=== PATIENT | male | born 1990 | race Caucasian/White ===

== ENCOUNTER 2017-03-30 13:22 | Emergency (ER) | payer MEDICAID, OTHER ==
[2017-03-30 13:34] VITALS: BP 123/67; PULSE 74; RESP 18; TEMP 98.7; O2SAT 99
[2017-03-30] MEDS ORDERED: Albuterol-Ipratrop 3 mg / 0.5 (3 ml) UD INH STA (13:54)
[2017-03-30] MEDS ORDERED: Albuterol-Ipratrop 3 mg / 0.5 (3 ml) UD ONE (13:54)
--- NOTE | 2017-03-30 14:00 | ED PDOC ---
HPI: CCC, URI, Sore Throat Time Seen by Provider: 03/30/17 13:39 Chief Complaint (Nursing): Cough, Cold, Congestion Chief Complaint (Provider): Chest and nasal congestion History Per: Patient History/Exam Limitations: no limitations Have you had recent travel within the past 21 days to any of the following countries: [place], [place], [place] or [place]?: No Onset/Duration Of Symptoms: Days Current Symptoms Are (Timing): Still Present Location Of Pain: None Sick Contacts (Context): None Associated Symptoms: Nasal Congestion Severity: Moderate Additional History Per: Patient Additional Complaint(s): The pt is a 26yo male, presents to the ED for evaluation of nasal and chest congestion present for the past 5 days. pt reports he has been taking OTC cough medication with no relief. States he saw some blood tinged sputum today while coughing, prompting his visit to the ED today. Pt denies any fever or chills. He offers no additional medical complaints. Past Medical History Reviewed: Historical Data, Nursing Documentation, Vital Signs Vital Signs: Last Vital Signs Temp 98.7 F 03/30/17 13:32 Pulse 74 03/30/17 13:32 Resp 18 03/30/17 13:32 BP 123/67 03/30/17 13:32 Pulse Ox 99 03/30/17 14:03 - Medical History PMH: No Chronic Diseases - Surgical History Surgical History: Appendectomy - Family History Family History: States: Unknown Family Hx - Living Arrangements Living Arrangements: With Family - Social History Current smoker - smoking cessation education provided: Yes (advised to stop smoking) Alcohol: None Drugs: Denies - Home Medications Home Medications: Ambulatory Orders Medication Instructions Recorded Albuterol HFA [Ventolin HFA 90 2 puff IH Q4H #1 puff 02/14/16 mcg/actuation (8 g)] Azithromycin [Zithromax] 250 mg PO DAILY #6 tablet 02/14/16 Albuterol HFA [Ventolin HFA 90 1 puff IH BID PRN #1 unit 03/30/17 mcg/actuation (8 g)] Guaifen/Phenyleph/Acetaminophn 1 tab PO BID #14 tab 03/30/17 [Mucinex Fast-Max Cold & Sinus 325 mg-200 mg-5] - Allergies Allergies/Adverse Reactions: Allergies Allergy/AdvReac Type Severity Reaction Status Date / Time No Known Allergies Allergy Verified 02/14/16 07:43 Review of Systems ROS Statement: Except As Marked, All Systems Reviewed And Found Negative Constitutional: Negative for: Fever, Chills ENT: Positive for: Nose Congestion Cardiovascular: Positive for: Other (chest congestion) Physical Exam - Reviewed Nursing Documentation Reviewed: Yes Vital Signs Reviewed: Yes - Physical Exam Appears: Positive for: Well, Non-toxic, No Acute Distress Head Exam: Positive for: ATRAUMATIC, NORMAL INSPECTION, NORMOCEPHALIC Skin: Positive for: Normal Color Neck: Positive for: Normal Cardiovascular/Chest: Positive for: Regular Rate, Rhythm Respiratory: Positive for: Normal Breath Sounds. Negative for: Respiratory Distress Neurologic/Psych: Positive for: Alert, Oriented - ECG O2 Sat by Pulse Oximetry: 99 (RA) Pulse Ox Interpretation: Normal Medical Decision Making Medical Decision Making: Time: 1350 Impression: Nasal and chest congestion Plan: -- Duoneb 3 ml INH Scribe Attestation: Documented by Esther Sinha, acting as a scribe for NORA Amos Provider Attestation: All medical record entries made by the Scribe were at my direction and personally dictated by me. I have reviewed the chart and agree that the record accurately reflects my personal performance of the history, physical exam, medical decision making, and the department course for this patient. I have also personally directed, reviewed, and agree with the discharge instructions and disposition. Disposition - Clinical Impression Clinical Impression: Bronchitis - Patient ED Disposition Is Patient to be Admitted: No Counseled Patient/Family Regarding: Diagnosis, Need For Followup, Rx Given - Disposition Disposition: Routine/Home Disposition Time: 14:37 Condition: GOOD Prescriptions: Albuterol HFA [Ventolin HFA 90 mcg/actuation (8 g)] 1 puff IH BID PRN #1 unit PRN Reason: Wheezing Guaifen/Phenyleph/Acetaminophn [Mucinex Fast-Max Cold & Sinus 325 mg-200 mg-5] 1 tab PO BID #14 tab Instructions: Acute Bronchitis (ED), How to Stop Smoking (ED)
== END 2017-03-30 14:58 | disposition home or self-care (01) ==
LOC: H.ER 13:22
DX: J40 Bronchitis, not specified as acute or chronic (principal); Z71.6 Tobacco abuse counseling; R09.89 Other specified symptoms and signs involving the circulatory and respiratory systems

== ENCOUNTER 2017-07-10 08:45 | Emergency (ER) | payer BC, OTHER ==
[2017-07-10 08:52] VITALS: BMI 22.1
--- NOTE | 2017-07-10 10:04 | ED PDOC ---
HPI: Male Pain Time Seen by Provider: 07/10/17 09:11 Chief Complaint (Nursing): Abdominal Pain History Per: Patient History/Exam Limitations: no limitations Onset/Duration Of Symptoms: Gradual Current Symptoms Are (Timing): Still Present Severity: Mild Quality Of Discomfort: Sharp Associated Symptoms: denies: Fever, Chills, Nausea, Vomiting, Diarrhea, Loss Of Appetite, Back Pain, Chest Pain, Constipation, Urinary Symptoms Alleviating Factors: None Additional History Per: Patient Additional Complaint(s): Pt c/o vomiting and right abdominal pain radiating to right flank and right groin since this AM. Denies injury Past Medical History Reviewed: Historical Data, Nursing Documentation, Vital Signs Vital Signs: Last Vital Signs Temp 98.0 F 07/10/17 08:53 Pulse 62 07/10/17 08:53 Resp 16 07/10/17 08:53 BP 111/73 07/10/17 08:53 Pulse Ox 100 07/10/17 08:53 - Medical History PMH: No Chronic Diseases - Surgical History Surgical History: Appendectomy - Family History Family History: States: Other Other Family History: h/o of renal stones - Living Arrangements Living Arrangements: With Family - Social History Current smoker - smoking cessation education provided: No - Home Medications Home Medications: Ambulatory Orders Medication Instructions Recorded Albuterol HFA [Ventolin HFA 90 2 puff IH Q4H #1 puff 02/14/16 mcg/actuation (8 g)] Azithromycin [Zithromax] 250 mg PO DAILY #6 tablet 02/14/16 Albuterol HFA [Ventolin HFA 90 1 puff IH BID PRN #1 unit 03/30/17 mcg/actuation (8 g)] Guaifen/Phenyleph/Acetaminophn 1 tab PO BID #14 tab 03/30/17 [Mucinex Fast-Max Cold & Sinus 325 mg-200 mg-5] Naproxen 500 mg PO BID #30 ect 07/10/17 - Allergies Allergies/Adverse Reactions: Allergies Allergy/AdvReac Type Severity Reaction Status Date / Time No Known Allergies Allergy Verified 02/14/16 07:43 Review of Systems ROS Statement: Except As Marked, All Systems Reviewed And Found Negative Constitutional: Negative for: Fever, Chills Cardiovascular: Negative for: Chest Pain, Palpitations Respiratory: Negative for: Cough, Shortness of Breath Gastrointestinal: Positive for: Abdominal Pain. Negative for: Nausea, Vomiting Genitourinary Male: Negative for: Dysuria, Frequency, Hematuria, Penile Discharge, Scrotal Pain, Rash, Penile Pain Musculoskeletal: Negative for: Neck Pain Neurological: Negative for: Weakness, Numbness Physical Exam - Reviewed Nursing Documentation Reviewed: Yes Vital Signs Reviewed: Yes - Physical Exam Appears: Positive for: Uncomfortable Head Exam: Positive for: ATRAUMATIC, NORMAL INSPECTION, NORMOCEPHALIC Eye Exam: Positive for: Normal appearance, EOMI, PERRL Neck: Positive for: Normal, Painless ROM, Supple Cardiovascular/Chest: Positive for: Regular Rate, Rhythm, Chest Non Tender. Negative for: Edema, Gallop, Bradycardia, Tachycardia Respiratory: Positive for: Normal Breath Sounds. Negative for: Decreased Breath Sounds, Accessory Muscle Use, Crackles, Rales, Rhonchi, Stridor, Wheezing , Respiratory Distress Pulses-Radial (L): 2+ Pulses-Radial (R): 2+ Gastrointestinal/Abdominal: Positive for: Normal Exam, Bowel Sounds, Soft. Negative for: Tenderness Male Genital Exam: Positive for: normal genitalia, other (chaperoned with nurse shirley nml cremaster reflex). Negative for: scrotum tenderness (R), scrotum tenderness (L), testicular tenderness (R), testicular tenderness (L), urethral discharge Back: Positive for: Normal Inspection. Negative for: L CVA Tenderness, R CVA Tenderness Extremity: Positive for: Normal ROM. Negative for: Tenderness, Pedal Edema Neurologic/Psych: Positive for: Alert, chief engineer production II-XII, Oriented, Mood/Affect (calm) . Negative for: Motor/Sensory Deficits - Laboratory Results Result Diagrams: 07/10/17 09:50 07/10/17 09:50 - ECG O2 Sat by Pulse Oximetry: 100 Pulse Ox Interpretation: Normal - Progress ED Course And Treament: IMPRESSION: Slightly enlarged right kidney demonstrates mild diffuse low-attenuation. No evidence of obstructing stone in the right kidney. The possibility of infectious process in the right kidney should be excluded. Mildly dilated right kidney collecting system without definite evidence of obstructing stone. Linear shaped multiple calcifications seen at the right aspect of the pelvis at the wall or adjacent to the right ureter of uncertain etiology and the differential consideration includes calcified lymph nodes, vascular calcification or calcified wall of the distal right ureter. 2 centimeters slightly low-attenuation mass like lesion at the inferior aspect of the right liver lobe image 33 series 2 of uncertain etiology. Both benign and malignant liver lesion can share the same appearance in this noncontrast study. Otherwise grossly unremarkable. advise close f/u with pmd. Re-evaluation Time: 11:06 Condition: Improved Disposition - Clinical Impression Clinical Impression: Renal colic on right side - Patient ED Disposition Is Patient to be Admitted: No Counseled Patient/Family Regarding: Studies Performed, Diagnosis, Need For Followup, Rx Given - Disposition Referrals: [facility] [Outside] (2 to 3 days) [facility] [Outside] Disposition: Routine/Home Disposition Time: 11:08 Condition: GOOD Prescriptions: Naproxen 500 mg PO BID #30 ect Instructions: Renal Colic (ED) Forms: [facility] (Czech)
[2017-07-10 10:07] LABS: BASO % 0.6 % (0.0-2.0); EOS # 0.1 K/uL (0.0-0.7); EOS % 1.1 % (0.0-4.0); HEMATOCRIT 48.1 % (35.0-51.0); LYMPH # 2.2 K/uL (1.0-4.3); MEAN CELL VOLUME 87.5 fl (80.0-94.0); MEAN CORPUSCULAR HEMOGLOBIN 29.8 pg (27.0-31.0); MEAN PLATELET VOLUME 9.7 fl (7.2-11.7); MONO # 0.6 K/uL (0.0-0.8); MONO % 8.9 % (0.0-10.0); NEUT # 4.1 K/uL (1.8-7.0); NEUT % 58.4 % (50.0-75.0); NRBC % 0.2 % (0.0-0.0); RED CELL DISTRIBUTION WIDTH 13.2 % (11.5-14.5); WHITE BLOOD COUNT 7.1 K/uL (4.8-10.8)
[2017-07-10 10:09] LABS: RBC URINE 7 /hpf (0-3); URINE BACTERIA RARE (<OCC); URINE BILIRUBIN NEGATIVE (NEGATIVE); URINE BLOOD SMALL (NEGATIVE); URINE COLOR YELLOW (YELLOW); URINE GLUCOSE (UA) NEG (Normal); URINE KETONE NEGATIVE (NEGATIVE); URINE LEUKOCYTE ESTERASE NEG Leu/uL (Negative); URINE PROTEIN 30 mg/dL (NEGATIVE); URINE UROBILINOGEN 0.2-1.0 mg/dL (0.2-1.0); WBC URINE 7 /hpf (0-5)
[2017-07-10 10:10] LABS: ALB/GLOB RATIO 1.4 (1.0-2.1); ALKALINE PHOSPHATASE 62 U/L (38-126); ALT/SGPT 30 U/L (21-72); AMYLASE 83 U/L (30-110); AST/SGOT 36 U/L (17-59); BILIRUBIN,TOTAL 1.1 mg/dl (0.2-1.3); BLOOD UREA NITROGEN 15 mg/dl (9-20); CALCIUM 9.7 mg/dL (8.4-10.2); CARBON DIOXIDE 21 mmol/L (22-30); CHLORIDE 108 mmol/L (98-107); GFR AFRICAN-AMERICAN > 60; GLUCOSE,RANDOM 97 mg/dL (75-110); LIPASE 59 U/L (23-300); POTASSIUM 4.9 MMOL/L (3.6-5.0); SODIUM 140 mmol/l (132-148); TOTAL PROTEIN 8.3 G/DL (6.3-8.2)
--- NOTE | 2017-07-10 10:44 | CT ---
PROCEDURE: CT Abdomen and Pelvis without intravenous contrast HISTORY: right flank pain COMPARISON: None. TECHNIQUE: Axial and reformatted coronal and sagittal CT images of the abdomen and pelvis were obtained without IV or oral contrast administration.. Contrast Dose: 0 Radiation dose: Total exam DLP = 460.97 mGy-cm. This CT exam was performed using one or more of the following dose reduction techniques: Automated exposure control, adjustment of the mA and/or kV according to patient size, and/or use of iterative reconstruction technique. FINDINGS: LOWER THORAX: Unremarkable. LIVER: There is a slightly low-attenuation 2 centimeter lesion at the inferior aspect of the right liver lobe image 33 series 2 of uncertain etiology GALLBLADDER AND BILE DUCTS: Unremarkable. PANCREAS: Unremarkable. No gross lesion or ductal dilatation. SPLEEN: Unremarkable. ADRENALS: Unremarkable. No mass. KIDNEYS AND URETERS: The right kidney appears slightly larger than the left demonstrates mild diffuse low attenuation. There is mild dietitian of the right kidney collecting system without definite evidence of obstructing stone. There are linear shaped calcification at the wall or adjacent to the mid to distal right ureter. The left kidney is grossly unremarkable. VASCULATURE: Unremarkable. No aortic aneurysm. BOWEL: Unremarkable. No obstruction. No gross mural thickening. APPENDIX: No evidence of appendicitis in this noncontrast study. PERITONEUM: Unremarkable. No free fluid. No free air. LYMPH NODES: Unremarkable. No enlarged lymph nodes. BLADDER: Unremarkable. REPRODUCTIVE: Unremarkable. BONES: No acute fracture. OTHER FINDINGS: None. IMPRESSION: Slightly enlarged right kidney demonstrates mild diffuse low-attenuation. No evidence of obstructing stone in the right kidney. The possibility of infectious process in the right kidney should be excluded. Mildly dilated right kidney collecting system without definite evidence of obstructing stone. Linear shaped multiple calcifications seen at the right aspect of the pelvis at the wall or adjacent to the right ureter of uncertain etiology and the differential consideration includes calcified lymph nodes, vascular calcification or calcified wall of the distal right ureter. 2 centimeters slightly low-attenuation mass like lesion at the inferior aspect of the right liver lobe image 33 series 2 of uncertain etiology. Both benign and malignant liver lesion can share the same appearance in this noncontrast study. Otherwise grossly unremarkable.
[2017-07-10 11:36] VITALS: BP 128/76; PULSE 78; RESP 19; TEMP 97.6; O2SAT 98
== END 2017-07-10 11:36 | disposition home or self-care (01) ==
LOC: H.ER 08:45
DX: N23 Unspecified renal colic (principal)
CPT/HCPCS: 74176; 80053; 81003; 82150; 83690; 85025; 96374; 99282; J1885

== ENCOUNTER 2017-11-19 18:28 | Emergency (ER) | payer SELFPAY ==
[2017-11-19 18:28] VITALS: BMI 22.1
[2017-11-19 18:39] VITALS: BP 121/63; PULSE 93; RESP 16; TEMP 100.1; O2SAT 100
--- NOTE | 2017-11-19 19:23 | ED PDOC ---
HPI: General Adult Time Seen by Provider: 11/19/17 18:42 Chief Complaint (Nursing): Flu-like Symptoms Chief Complaint (Provider): Flu Like Symptoms History Per: Patient History/Exam Limitations: no limitations Onset/Duration Of Symptoms: Days (x3) Current Symptoms Are (Timing): Still Present Additional Complaint(s): 26 year old male presents to the ED complaining of body aches, chills and cough x3 days. The patient states that he has been taking over the counter medications which have offered some relief of his symptoms. Patient also reports that his daughter is flu (+). PMD:FAMILY PROVIDER,NO Past Medical History Reviewed: Historical Data, Nursing Documentation, Vital Signs Vital Signs: Last Vital Signs Temp 100.1 F H 11/19/17 18:35 Pulse 93 H 11/19/17 18:35 Resp 16 11/19/17 18:35 BP 121/63 11/19/17 18:35 Pulse Ox 100 11/19/17 18:35 - Medical History PMH: No Chronic Diseases - Surgical History Surgical History: Appendectomy - Family History Family History: States: Unknown Family Hx - Living Arrangements Living Arrangements: With Family - Social History Current smoker - smoking cessation education provided: Yes (Light Smoker < 10 Cigarettes Daily) Ex-Smoker (has not smoked in the last 12 months): Yes Alcohol: Occasional Drugs: Denies - Home Medications Home Medications: Ambulatory Orders Medication Instructions Recorded Albuterol HFA [Ventolin HFA 90 2 puff IH Q4H #1 puff 02/14/16 mcg/actuation (8 g)] Azithromycin [Zithromax] 250 mg PO DAILY #6 tablet 02/14/16 Albuterol HFA [Ventolin HFA 90 1 puff IH BID PRN #1 unit 03/30/17 mcg/actuation (8 g)] Guaifen/Phenyleph/Acetaminophn 1 tab PO BID #14 tab 03/30/17 [Mucinex Fast-Max Cold & Sinus 325 mg-200 mg-5] Naproxen 500 mg PO BID #30 ect 07/10/17 - Allergies Allergies/Adverse Reactions: Allergies Allergy/AdvReac Type Severity Reaction Status Date / Time avocado Allergy RASH Verified 11/19/17 18:35 Review of Systems ROS Statement: Except As Marked, All Systems Reviewed And Found Negative Constitutional: Positive for: Chills, Other (body aches). Negative for: Fever Respiratory: Positive for: Cough - ECG O2 Sat by Pulse Oximetry: 100 (RA) Pulse Ox Interpretation: Normal Medical Decision Making Medical Decision Makin Initial Impression 26 y/o male presenting with flu like symptoms 1914 Patient is no longer within the window to be prescribed tamiflu. Documented by Halina Mariano acting as a scribe for Tracey Lopez PA-C. All medical record entries made by the Scribe were at my direction and personally dictated by me. I have reviewed the chart and agree that the record accurately reflects my personal performance of the history, physical exam, medical decision making, and the department course for this patient. I have also personally directed, reviewed, and agree with the discharge instructions and disposition. Disposition - Clinical Impression Clinical Impression: Influenza - Disposition Instructions: Influenza (ED) Forms: [id number] (Ma[place])
== END 2017-11-19 19:44 | disposition home or self-care (01) ==
LOC: H.ER 18:28
DX: J11.1 Influenza due to unidentified influenza virus with other respiratory manifestations (principal)